=== PATIENT | female | born 1945 | race Caucasian/White ===

== ENCOUNTER 2016-11-02 13:04 | Day surgery (SDC) | payer MEDICARE, OTHER ==
[~2016-11-02 13:04] MED LIST: ASPIRIN EC325 MG PO; CALCIUM 600MG+D1 TAB PO; CALCIUM ACETAT667 MG PO; CETIRIZINE HCL10 MG PO; CIPRO 250MG TA250 MG PO; CITALOPRAM HYDR20 MG PO; FISH OIL1000 MG PO; IMODIUM 2MG. CAP2 MG PO; ISOSORBIDE MONO60 M1 PO; LEVAQUIN 750 M750 MG PO; LEVOTHYROXIN0.125 M1 NG; LEVOTHYROXIN0.125 MG PO; LEVOTHYROXINE0.15 MG PO; LORATADINE 10MG10 M1 PO; METOPROLOL SUCC50 M2 PO; NITROSTAT 0.4M0.4 MG SL; PANTOPRAZOLE SO40 M1 PO; PLAVIX 75MG TAB75 MG PO; PRAVACHOL40 MG PO; PREDNISONE 20MG20 MG PO; PROVENTIL0.09 MG/A1 IH; RANITIDINE HCL150 MG PO; TYLENOL WITH CO1 TA1 PO; ZOFRAN ODT8 MG PO; [UNRECOGNIZED DRUG - OTHER] PO
--- NOTE | 2016-11-02 14:47 | Operative Note ---
Colonoscopy ([facility]) Procedure date: 11/02/16 Date of : 41 Procedure:Colonoscopy Colonoscopy Indications: Mrs. Key is a 70-year-old female who is here for follow-up screening/ surveillance colonoscopy. The patient's last colonoscopy in July 2006 revealed mild left-sided diverticulosis. The patient does have some RIGHT lower quadrant abdominal pain and discomfort. She also has some chronic constipation, bloating and gassiness. She developed diarrhea with the use of Linzess. The patient reports no rectal bleeding, weight loss or family history of colon cancer. Performing Provider: Jacob Barakat MD Referrring Provider: Raul Sears M.D. Sedation: Fentanyl 150 mg IV/Versed 9 mg IV Procedure: Prior to the procedure, a history and physical exam was performed, and patient medications and allergies were reviewed. The risks and benefits of the procedure and the sedation options and risks were discussed with the patient. All questions were answered and informed consent was obtained. Patient identification and proposed procedure were verified by the physician and the nurse. The patient was placed in a left lateral decubitus position. Throughout the procedure, the patient's blood pressure, pulse, and oxygen saturations were monitored continuously. Findings: On digital rectal examination there was normal rectal tone. There were no external hemorrhoids. The colonoscope was introduced through the anal canal to the rectum and advanced to the cecum. The ileocecal valve and appendiceal orifice were identified. The scope was advanced a short distance into the ileum which appeared grossly normal. The scope was then withdrawn into the colon. The cecum, ascending and transverse colon and mucosa were grossly normal. There were scattered diverticuli throughout the descending and sigmoid colon (LEFT colon). The rectum itself was normal. Upon retroflexion within the rectum there were grade 1 internal hemorrhoids. Impressions: 1. Left-sided diverticulosis 2. Grade 1 internal hemorrhoids Recommendations: I do feel that the patient has some hepatic flexure syndrome secondary to her obstipation/incomplete defecation and chronic constipation. Based on the patient's age, I do not feel that she will require any further surveillance/preventive colonoscopy. Complications: None EBL (ml): 0 at 1441
[2016-11-02 16:40] VITALS: BP 88/49
== END 2016-11-02 15:51 | disposition home or self-care (01) ==
LOC: SDC 13:04
PROVIDERS: Internal Medicine Gastroenterology
PROC: 0DJD8ZZ Inspection of Lower Intestinal Tract, Via Natural or Artificial Opening Endoscopic (ICD-10-PCS; principal; 2016-11-02 14:00)
DX: Z12.11 Encounter for screening for malignant neoplasm of colon (principal); K57.30 Diverticulosis of large intestine without perforation or abscess without bleeding; K64.0 First degree hemorrhoids

== ENCOUNTER 2017-03-07 11:24 | Emergency (ER) | payer MEDICARE, OTHER ==
[~2017-03-07] VITALS: Ht 162.6 cm; Wt 72.1 kg
[~2017-03-07 11:24] MED LIST changes: +ASPIRIN ADULT L81 M3 PO; -ASPIRIN EC325 MG PO; +LANSOPRAZOLE30 MG PO; -METOPROLOL SUCC50 M2 PO; +MONTELUKAST SOD10 MG PO; +SINGULAIR 10 MG10 MG PO; +SYNTHROID0.088 MG PO; +TOPROL XL 25MG25 MG PO
[2017-03-07] MEDS ORDERED: MEDROL 4MG. DOSE4 MG PO (12:22)
[2017-03-07] MEDS ORDERED: ZITHROMAX Z PA250 MG PO (12:22)
[2017-03-07] MEDS ORDERED: TESSALON PERLE100 M1 PO (12:22)
--- NOTE | 2017-03-07 12:23 | Urgent Treatment Center Report ---
History of Present Issue Date/Time Seen by Provider 03/07/17 1213 Visit Reason Pt arrived:Walked Presenting Problem:PT C/O COUGH ACCOMPANIED BY BACK PAIN AND HEAD CONGESTION X4 DAYS Location if Accident: Onset of symptoms date/time:/ or onset unknown for:MEDICAL HX UNKNOWN Have you (or family members/close friends) recently traveled outside the [place]? N If Yes, where/when: Have you had exposure to infectious disease within the past month? TB? Other? Specify: Patient state that she has not been feeling well for several days. State that she is having head congestion state that her sinuses started out running clean now has changed to a yellowish green color. State that her throat is sore and she can feel the drainage in the back of her throat. State that she is coughing so much she is getting sore in her back from the drainage State that she has been sick for several weeks but got worse over the last 3-4 days ALLERGIES Coded Allergies: cefdinir (From [employer]) (Intermediate, I-RASH 10/29/16) Home Medications Active Scripts Nitroglycerin (Nitrostat 0.4MG (1/150 Gr) Tabs #25) 0.4 MG SL [id number] PRN CHEST PAIN #25 TAB Ref 2 Prov: 05/16/15 Reported Medications CALCIUM CARBONATE/VITAMIN D3 (Calcium 600 + Vit D 200 Tablet) 1 TAB PO BID ALBUTEROL (Proventil Hfa Inhaler) 2 PUFF IH QID Metoprolol Succinate Xl (Toprol Xl) 25 MG PO DAILY Aspirin (Aspirin EC) 81 MG PO DAILY Lansoprazole (Lansoprazole) 30 MG PO DAILY #90 CAP Montelukast Sodium 10 MG PO QHS #90 TAB Pravastatin Sodium (Pravachol) 80 MG PO QHS 90 Days Citalopram Hydrobromide (Citalopram HBr) 20 MG PO DAILY 90 Days CYANOCOBALAMIN/FA/PYRIDOXINE (Folgard Rx Tablet) 1 TAB PO DAILY 90 Days Isosorbide Mononitrate (Isosorbide Mononitrate ER) 60 MG PO DAILY 90 Days OMEGA-3 FATTY ACIDS/FISH OIL (Fish Oil 1,000 MG Capsule) 1,000 MG PO BID CLOPIDOGREL BISULFATE (PLAVIX) 75 MG PO DAILY Loratadine (Loratadine 10MG Tablet) 10 MG PO DAILY Levothyroxine Sodium (Synthroid 0.088MG) 0.088 MG PO DAILY History Medical History General CAD? No Angina: Yes OR: No Hypertension? No Hyperlipidemia? Yes CHF? No DVT? No PE? No COPD? No Asthma? Yes Anemia? No GERD? No Gastric ulcers? No GI Bleed? No Hernia? No Thyroid Problems? No Hypothyroidism? No CVA? No Seizures? No Diabetes? No Insulin Dependent: No Insulin Pump: No Home FSBS? No Renal Insuffiency? No UTI? Yes Stones? No BPH? No GB Disease: No Nephritic Syndrome? No Asplenia? No Hepatitis? Yes Sickle Cell Disease? No Arthritis? No Migraines? No Cataracts? Yes Glaucoma? No MRSA? No HIV? No TB? No Anxiety? No Depression? No Cancer? No More? Yes Additional hx: SLEEP APNEA HIATAL HERNIA Immunization HX DT/Tetanus Unknown Flu [id number] Pneumonia Received In Past Surgical Hx Previous Surgery?Y Tubal Ligation Hysterect Appendix CYST ON OVARY REMOVED NECK SURGERY bladder tuck egd colonoscopy bilat cataracts ANGIOPLASTY Family History Family HX Diabetes Yes CAD Yes Hypertension Yes Hyperlipidemia Yes Cancer No TB No Social History Smoking Hx Smoker: Never Smoker Tobacco: No Alcohol Alcohol: No Review of Systems All Other Systems Reviewed and Negative Constitutional fever ENT nose congestion, throat pain. denies: ear pain, ear discharge. Respiratory cough, denies shortness of breath, denies wheezing Cardiovascular denies chest pain, denies syncope Physical Exam Vital Signs Vital Signs Date Time Temp Pulse Resp B/P Pulse O2 O2 Flow FiO2 Ox Delivery Rate 03/07 1135 98.1 76 18 113/69 97 General Appearance normal appearance, WD/WN, no apparent distress Ear, Nose, Throat sinus pain/drainage, nasal congestion, Throat red,, irritated drainage noted in back of throat Bilateral turbinates red, tenderness noted maxillary sinsuse Respiratory Status Yes: trachea midline, chest symmetrical. No: respiratory distress. Lung Sounds bilateral: normal breath sounds. Cardiovascular normal exam Neurologic alert, normal exam, oriented x 3 Medical Decision Making LABS/Meds/Orders Pt receiving controlled substance in ED? No Departure Departure Time of Disposition 1220 Disposition DC Home or Self Care(routine) Clinical Impression Primary Impression: Upper respiratory infection Qualifiers: URI type: acute pharyngitis Pharyngitis/tonsillitis etiology: unspecified etiology Qualified Code: J02.9 - Acute pharyngitis, unspecified Condition STABLE Referrals Renu GERMAN,Raul (Family) Patient Instructions Cough, DI for Sinusitis, Sore Throat Additional Instructions * Monitor Temp. Tylenol and/or Ibuprofen as needed. ER if fever is no less than 101 despite alternating Tylenol and Ibuprofen * Encourage fluids, water, Gatorade, powerade, pedialyte if /toddler/or child * Warm salt water gargles for throat irritation *Warm fluids *Sore throat lozenges *Sleep elevated *humidifier or vaporizer *Flonase 2 sprays each nostril daily but may take 2-3 days to notice improvement with it Follow up IMMEDIATELY for new or worsening of symptoms OR no noticeable improvement over the next 48-72 hours. 911 immediately for any life threatening symptoms such as chest pain or difficulty breathing Discharge Counseling Counseled pt/family regarding diagnosis, medications/RX, home care, follow up needs Prescriptions Current Visit Scripts Azithromycin (Zithromycin (Z-TAM) 250MG Tab) 250 MG PO DAILY #6 TAB TAKE TWO (2) TABLETS ON DAY 1, THEN ONE (1) TABLET DAY #2 THRU #5 Methylprednisolone (Medrol Dose Tam) 4 MG PO UD #1 TAM TAKE DIRECTED ON PACKAGING Benzonatate (Tessalon Perle) 100 MG PO TID #15 SGL at 1222
[2017-03-07 12:24] VITALS: BP 113/69
--- OUTSIDE RECORDS SUMMARY | 2017-03-12 18:30 | External Medical Summary Rpt | CCD ---
Author Author , MARGOT RFOST Address Unknown Phone [email or web address] Purpose Continuity of Care Document - through 2016 Problems Code Diagnosis DOS Provider Status E03.9 HYPOTHYROID ISM, UNSPECIFIED I20.0 UNSTABLE ANGINA R10.11 RIGHT UPPER QUADRANT PAIN
--- OUTSIDE RECORDS SUMMARY | 2017-03-12 18:30 | External Medical Summary Rpt | CCD ---
Author Author , MARGOT FROST Address Unknown Phone [email or web address] Immunization Name Date Rout CVX Reac Dose Comm Prov Is Faci e tion ent ider Refu lity Give sed n Infl 10-0 0.5 Hist PD20 No PD20 uenz 3-20 mL oric 256 256 a 17 al Quad Info rmat W/Pr ion es - Sour ce Unsp ecif ied PPV2 11-1 Intr 33 999 Hist H191 No H191 3 5-20 amus oric 07 cula al r Info rmat ion - Sour ce Unsp ecif ied
--- OUTSIDE RECORDS SUMMARY | 2017-03-12 18:30 | External Medical Summary Rpt | CCD ---
Author Author , MARGOT FROST Address Unknown Phone [email or web address] Purpose Continuity of Care Document - through 2016 Problems Code Diagnosis DOS Provider Status E03.9 HYPOTHYROID ISM, UNSPECIFIED I20.0 UNSTABLE ANGINA R10.11 RIGHT UPPER QUADRANT PAIN
--- OUTSIDE RECORDS SUMMARY | 2017-03-12 18:30 | External Medical Summary Rpt | CCD ---
Author Author , MARGOT FROST Address Unknown Phone Immunization Name Date Rout CVX Reac Dose [...]
== END 2017-03-07 12:33 | disposition home or self-care (01) ==
LOC: UTC 11:24
DX: J02.9 Acute pharyngitis, unspecified (principal); E78.5 Hyperlipidemia, unspecified; Z88.1 Allergy status to other antibiotic agents